=== PATIENT | male | born 1975 | race Caucasian/White ===

== ENCOUNTER 2023-12-10 09:14 | Outpatient (CLI) | payer OTHER, SELFPAY | END 2023-12-10 09:15 | disposition home or self-care (01) | LOC: NFLDREF 12-11 06:30 | PROVIDERS: PCP Family Medicine; Referring Provider Family Medicine; Visit Provider Family Medicine | DX: E78.00 Pure hypercholesterolemia, unspecified (principal) | CPT/HCPCS: 80053; 80061 ==

== ENCOUNTER 2023-12-18 10:29 | Outpatient (CLI) | payer OTHER, SELFPAY ==
--- NOTE | 2023-12-18 10:45 | CRLHL7_ITS ---
For Patients: As a result of the Cures Act, medical imaging exams and procedure reports are released immediately into your electronic medical record. You may view this report before your referring provider. If you have questions, please contact your health care provider. DIGITAL DIAGNOSTIC BILATERAL MAMMOGRAM USING TOMOSYNTHESIS AND COMPUTER-AIDED DETECTION LEFT BREAST ULTRASOUND CLINICAL HISTORY: LEFT breast lump. COMPARISON: None. TECHNIQUE: Digital BILATERAL mammogram in four projections. Tomosynthesis and CAD utilized. Real-time ultrasound imaging of LEFT breast with imaging documentation. BREAST COMPOSITION: The breasts are almost entirely fatty. FINDINGS: BILATERAL mammogram images submitted. No suspicious masses or architectural distortion. No adenopathy. No suspicious calcifications. No gynecomastia. Targeted LEFT breast ultrasound performed at 4 o`clock 4 cm from the nipple. Within the subcutaneous fat, there is a subcutaneous solid structure without suspicious vascularity with echotexture isoechoic to the adjacent fat. This measures 2.9 x 1.2 x 2.3 cm. IMPRESSION: Benign subcutaneous lipoma LEFT breast 4 o`clock 4 cm from the nipple. No evidence of malignancy. RECOMMENDATIONS: Clinical follow-up. Results and recommendations were discussed with the patient at the time of the exam. BI-RADS Category 2: Benign A lay language report of this examination will be provided to the patient. Dictated by Moshe Calzada MD @ 12/18/2023 1:01:54 PM /Dictated by: Moshe Calzada MD @ 12/18/2023 1:01:00 PM (Electronically Signed)
--- NOTE | 2023-12-18 11:15 | CRLHL7_ITS ---
For Patients: As a result of the Cures Act, medical imaging exams and procedure reports are released immediately into your electronic medical record. You may view this report before your referring provider. If you have questions, please contact your health care provider. PLEASE SEE DIGITAL DIAGNOSTIC BILATERAL MAMMOGRAM PERFORMED SAME DAY CRL:[email or web address] chadwick/Dictated by: Moshe Calzada MD @ 12/18/2023 1:01:00 PM (Electronically Signed)
== END 2023-12-18 10:30 | disposition home or self-care (01) ==
LOC: MAMMO 10:30
PROVIDERS: PCP Family Medicine; Visit Provider Family Medicine
DX: N63.20 Unspecified lump in the left breast, unspecified quadrant (principal)
CPT/HCPCS: 76642; 77066; G0279

== ENCOUNTER 2023-12-29 08:40 | Outpatient (CLI) | payer OTHER, SELFPAY ==
--- NOTE | 2023-12-29 10:49 | W.ANESCHARGE ---
Anesthesia Charges Start Date/Time Anesthesia Start Date: 12/29/23 Anesthesia Start Time: 10:19 Stop Date/Time Anesthesia Stop Date: 12/29/23 Anesthesia Stop Time: 10:45
--- NOTE | 2023-12-29 11:08 | W.ANESCHARGE ---
Anesthesia Charges Start Date/Time Anesthesia Start Date: 12/29/23 Anesthesia Start Time: 10:19 Stop Date/Time Anesthesia Stop Date: 12/29/23 Anesthesia Stop Time: 10:45
== END 2023-12-29 08:41 | disposition home or self-care (01) ==
LOC: OP CLINIC 08:41
PROVIDERS: PCP Family Medicine; Visit Provider Internal Medicine
DX: Z12.11 Encounter for screening for malignant neoplasm of colon (principal); K63.5 Polyp of colon
CPT/HCPCS: 00811; 45380; 88305; J2704

== ENCOUNTER 2025-02-17 08:54 | Outpatient (CLI) | payer OTHER, SELFPAY | END 2025-02-17 08:55 | disposition home or self-care (01) | PROVIDERS: PCP Family Medicine; Visit Provider Family Medicine | DX: E78.5 Hyperlipidemia, unspecified (principal); N52.9 Male erectile dysfunction, unspecified; E66.811 Obesity, class 1; R53.83 Other fatigue; Z12.5 Encounter for screening for malignant neoplasm of prostate | CPT/HCPCS: 80053; 80061; 84270; 84402; 84403; 84443; G0103 ==

== ENCOUNTER 2025-03-29 10:53 | Outpatient (CLI) | payer OTHER, SELFPAY ==
--- NOTE | 2025-04-05 11:44 | W.PM.SLEEP ---
Sleep Study Details Details Interpreting Provider: Viri Date of Sleep Study: 03/29/25 Sleep Study Details: STUDY TYPE:? Home unattended ? BMI:? 37.6 ORDERING PROVIDER:Radha Meredith INDICATION:? Concern for sleep apnea ? SLEEP SUMMARY:? 546 minutes monitored RESPIRATORY SUMMARY:? AHI 11.6 per rule 1A, 7.9 per CMS guideline Low oxygen 82 5.4% of study oxygen less than 90% Snoring 91% PERIODIC LIMB MOVEMENTS OF SLEEP:? Not recorded CARDIAC:? Range 51-105, mean 77.7 beats per minute IMPRESSION:? Mild obstructive sleep apnea RECOMMENDATION: Weight loss is recommended. Treatment options for the apnea include weight loss, CPAP, dental appliance, or airway expansion surgery.
== END 2025-03-29 10:54 | disposition home or self-care (01) ==
LOC: SLEEP 10:54
PROVIDERS: PCP Family Medicine; Visit Provider Family Medicine
DX: G47.33 Obstructive sleep apnea (adult) (pediatric) (principal)
CPT/HCPCS: 95806

== ENCOUNTER 2025-06-06 09:39 | Outpatient (CLI) | payer OTHER, SELFPAY | END 2025-06-06 09:40 | disposition home or self-care (01) | LOC: NFLDREF 06-07 15:43 | PROVIDERS: PCP Family Medicine; Referring Provider Family Medicine; Visit Provider Family Medicine | DX: R79.89 Other specified abnormal findings of blood chemistry (principal); E78.5 Hyperlipidemia, unspecified | CPT/HCPCS: 80076; 84270; 84402; 84403; 84443 ==

== ENCOUNTER 2025-10-04 18:31 | Outpatient (CLI) | payer OTHER, SELFPAY ==
--- NOTE | 2025-10-04 19:00 | MR_ITS ---
[facility] [address] [facility] [address] Phone:?[phone] Fax:?[phone] Referring Physician Information: Martín English M.D. [address] [facility] [address] Phone:?[phone] Fax:?[phone] Patient:Navarro Chavez D.O.B:?1975 Sex:?Male Phone:?[phone] [facility] MRN:?[id number] Exam Date:?10/04/2025 EXAM: MRI of the RIGHT KNEE, without contrast CLINICAL: Male, 49 years old, with right knee pain. INDICATION: Evaluate for meniscus tear versus other knee internal derangement etiology. PRIOR SURGERY: Reported history of unspecified surgery in July 1995. PLAIN FILMS: 09/26/2025 radiographic series of the right knee. COMPARISONS: No prior MRIs available. TECHNICAL: Using a 1.5 Rosario MR scanner and a localizing surface coil: 3.0 mm?sagittals: PD, PDFS 3.0 mm?coronals: PD, STIR 3.0 mm?axials: PD, T2FS SEDATION: None. CONTRAST: None. IMPRESSION: 1. Incomplete vertical radial tear from apex towards, but not completely through, periphery of the medial meniscus posterior horn is associated with moderate 3 mm of peripheral meniscal extrusion. 2. Mild medial compartment chondromalacia/osteoarthritis without significant subjacent reactive marrow edema at this time. 3. 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 4. Moderate knee effusion. 5. No lateral meniscus tear. 6. No cruciate or collateral ligament injuries. FINDINGS: Knee joint: Effusion: Moderate knee effusion. Popliteal cyst: None. Loose bodies: None. Subcutaneous and extra-articular soft tissues: Mild subcutaneous soft tissue swelling/edema especially anteromedially. Bones: There appears residua of tract of prior placement and a subsequent removal of tibial intramedullary esau. Ligaments: ACL: Intact and normal. PCL: Intact and normal. MCL: Intact and normal. FCL: Intact and normal. Posterolateral corner: Intact popliteus, biceps femoris, iliotibial band, popliteofibular ligament and lateral gastrocnemius. Posteromedial corner: Intact pes anserinus and posterior oblique ligament. Extensor mechanism: Patellar tendon: Intact and normal. Quadriceps tendon: Intact and normal. Retinacula: Intact and normal. Fat pads: Infrapatellar Hoffa's fat pad fibrotic stranding appears unremarkable as residua of arthroscopic surgery. Medial compartment: Medial meniscus: A vertical radial tear extends from apex towards, although not entirely through, periphery of the posterior horn of the medial meniscus (coronal images 19-22). Although there is not complete meniscal disruption, this incomplete radial tear does allow moderate 3 mm of peripheral meniscal extrusion (coronal image 17). Medial femoral condyle: Predominantly superficial grade II and, more localized grade III, chondromalacia/thinning and irregularity of the central medial femoral condyle is not associated with subjacent reactive marrow edema (coronal STIR series 9, images 20-14). Medial tibial plateau: Chondral thinning of the medial rim of the medial tibial plateau is not associated with subjacent reactive marrow edema. Lateral compartment: Lateral meniscus: Intact and normal. Lateral femoral condyle: No demonstrable chondromalacia. Lateral tibial plateau: No demonstrable chondromalacia. Patellofemoral joint: Patella: Minimal focal grade III chondral fissure of the medial patellar facet is accompanied by slight to mild subjacent reactive marrow edema (axial T2FS series 5, image 12). Trochlea: Much larger up to approximately 25 x 15 mm irregular grade II-III chondromalacia of the central femoral trochlea is not associated with significant subjacent reactive marrow edema at this time (sagittal images 14- 21). Proximal tibiofibular joint: Unremarkable. Neurovascular: Popliteal artery/vein: Normal. Anterior tibial artery: No aberrant variant. Tibial nerve: Normal. Popliteal nerve: Normal. Common peroneal nerve: Normal. [facility] Electronically signed on 10/05/2025 4:20:00 PM by Aniceto Weiss M.D.
== END 2025-10-04 18:32 | disposition home or self-care (01) ==
LOC: MRI 18:32
PROVIDERS: PCP Family Medicine; Visit Provider Family Medicine
DX: M25.561 Pain in right knee (principal); M23.221 Derangement of posterior horn of medial meniscus due to old tear or injury, right knee; M94.261 Chondromalacia, right knee; M25.461 Effusion, right knee
CPT/HCPCS: 73721